=== PATIENT | female | born 1975 | race Caucasian/White ===

== ENCOUNTER 2016-04-18 19:22 | Emergency (ER) | payer BC ==
[~2016-04-18] VITALS: Ht 175.3 cm; Wt 92.8 kg
[~2016-04-18 19:22] MED LIST: PRENTAB26 PO; SYN100 PO
[2016-04-18 19:25] VITALS: TEMP 38; Ht 175.3 cm; Wt 92.8 kg
[2016-04-18] MEDS ORDERED: ONDANSETRON INJ 2 MG/ML 2 ML VIAL IV STA (19:39)
[2016-04-18] MEDS ORDERED: ACETAMINOPHEN 325 MG TAB PO STA (19:39)
[2016-04-18] MEDS ORDERED: SODIUM CHLORIDE 0.9% 1000ML 2,000 ML IV STA (19:39)
[2016-04-18] MEDS ORDERED: LEVO100T PO (20:06)
[2016-04-18] MEDS ORDERED: BCPILLS PO (20:06)
[2016-04-18 20:10] LABS: BASO % 0.1 %; BASO ABS # 0.01 K/uL (0-0.2); COMPLETE YES; EOS % 0.1 %; HEMATOCRIT 40.1 % (37-47); IG% 0.2 %; LYMPH % 9.9 %; LYMPH ABS # 1.36 K/uL (1.2-3.4); MEAN CELL VOLUME 86.8 fL (80-100); MEAN CORPUSCULAR HEMOGLOBIN 30.5 pg (25-34); MEAN CORPUSCULAR HGB CONC 35.2 g/dl (32-36); MEAN PLATELET VOLUME 9.3 fL (7.4-10.4); MONO % 6.8 %; NEUT % 82.9 %; PLATELET COUNT 250 K/uL (130-400); RED BLOOD COUNT 4.62 M/uL (4.2-5.4)
[2016-04-18 20:30] LABS: BUN/CREATININE RATIO 10.1 (10-20); CALCIUM 8.6 mg/dl (8.5-10.1); CREATININE 0.87 mg/dl (0.60-1.20); POTASSIUM 3.7 mmol/L (3.5-5.1)
--- NOTE | 2016-04-18 20:41 | DIAGNOSTIC IMAGING REPORT ---
CHEST 2 VIEWS ROUTINE CLINICAL HISTORY: Cough. Congestion. COMPARISON STUDY: No previous studies for comparison. FINDINGS: Lung volumes are normal. No pneumothorax or pleural effusion is present. Lungs are clear. Cardiac size is normal. Mediastinal contours are normal. There is no evidence of pulmonary edema. IMPRESSION: No acute cardiopulmonary findings. Electronically signed by: Evin Andrade M.D. 04/18/2016 8:39 PM Dictated Date/Time: 04/18/2016 8:38 PM
[2016-04-18 21:48] VITALS: BP 101/53; PULSE 87; O2SAT 95
--- NOTE | 2016-04-19 00:53 | EMERGENCY ROOM VISIT NOTE ---
History Report prepared by Jd: Kathy Sofia Under the Supervision of: Ruchi SabillonO. First contact with patient: 19:28 Chief Complaint: FLU LIKE SX Stated Complaint: INFLUENZA History of Present Illness The patient is a 40 year old female who presents to the Emergency Room with complaints of worsening flu-like symptoms with onset being Sunday.The patient states that she started to feel sick one day ago. She has had a fever, aches, and feels generally weak. The patient notes that she has had vertigo following taking the Tamiflu and abdominal pain which she gets following getting sick every time.. The patient notes that the abdominal pain is right sided and started one day ago. She has a cough, runny nose, sore throat. She denies vomiting, diarrhea, chest pain, shortness of breath, neck pain, urinary symptoms , chance of , changes in vision, any particular weakness in arms or legs. The patient states that she took Motrin 3.5 hours ago. Source of History: patient Onset: 1 day ago Position: other (global) Symptom Intensity: 10 Quality: other (flu like symptoms) Timing: worsening Associated Symptoms: + abdominal pain, + cough, + fevers, + weakness, No SOB , No chest pain, No diarrhea, No urinary symptoms, No vomiting Note: The patient is a 40 year old female who presents to the Emergency Room with complaints of worsening flu-like symptoms with onset The patient states that she started to feel sick one day ago. She has aches, and feels generally weak. The patient notes that she has had vertigo, runny nose , sore throat. She denies neck pain, changes in vision, any particular weakness in arms or legs. Review of Systems See HPI for pertinent positives & negatives. A total of 10 systems reviewed and were otherwise negative. Past Medical & Surgical Medical Problems: (1) Hypothyroid Surgical Problems: (1) S/P cholecystectomy (2) S/P tonsillectomy Family History Diabetes mellitus FH: gallbladder disease Social History Smoking Status: Never Smoker Housing Status: lives with family Occupation Status: employed Current/Historical Medications Scheduled Control Pills ( Control Pills), 1 TAB PO QPM Levothyroxine Sodium (Synthroid), 100 MCG PO QAM Allergies Coded Allergies: No Known Allergies (Verified , ., 04/18/16) Physical Exam Vital Signs Date Time Temp Pulse Resp B/P Pulse Ox O2 Delivery O2 Flow Rate FiO2 04/18/16 21:48 87 16 101/53 95 Room Air 04/18/16 20:39 87 16 110/61 96 Room Air 04/18/16 19:25 38.0 106 20 154/80 97 Room Air Physical Exam GENERAL: Sitting up in bed, disheveled, in no acute distress, nontoxic, dry nonproductive cough EYE EXAM: normal conjunctiva, PERRL and EOM's intact OROPHARYNX: no exudate, no erythema, lips, buccal mucosa, and tongue normal and mucous membranes are dry EARS: NECK: supple, no nuchal rigidity, no adenopathy, non-tender LUNGS: Clear to auscultation. Normal chest wall mechanics HEART: no murmurs, S1 normal and S2 normal ABDOMEN: abdomen soft, non-tender, normo-active bowel sounds, no masses, no rebound or guarding. BACK: Back is symmetrical on inspection and there is no deformity, no midline tenderness, no CVA tenderness. SKIN: no rashes and no bruising UPPER EXTREMITIES: upper extremities are grossly normal. LOWER EXTREMITIES: No pitting edema. Calves are equal bilaterally. NEURO EXAM: Normal sensorium, cranial nerves II-XII intact, normal speech, no weakness of arms, no weakness of legs. No drift. Finger to nose intact.Sensation intact. Medical Decision & Procedures ER Provider Diagnostic Interpretation: Xray results per the radiologist and my interpretation. CHEST 2 VIEWS ROUTINE CLINICAL HISTORY: Cough. Congestion. COMPARISON STUDY: No previous studies for comparison. FINDINGS: Lung volumes are normal. No pneumothorax or pleural effusion is present. Lungs are clear. Cardiac size is normal. Mediastinal contours are normal. There is no evidence of pulmonary edema. IMPRESSION: No acute cardiopulmonary findings. Electronically signed by: Evin Andrade M.D. 04/18/2016 8:39 PM Dictated Date/Time: 04/18/2016 8:38 PM Laboratory Results 04/18/16 19:55 Red Blood Count 4.62, Mean Corpuscular Volume 86.8, Mean Corpuscular Hemoglobin 30.5, Mean Corpuscular Hemoglobin Concent 35.2, Mean Platelet Volume 9.3, Neutrophils (%) (Auto) 82.9, Lymphocytes (%) (Auto) 9.9, Monocytes (%) (Auto) 6.8, Eosinophils (%) (Auto) 0.1, Basophils (%) (Auto) 0.1, Neutrophils # (Auto) 11.36, Lymphocytes # (Auto) 1.36, Monocytes # (Auto) 0.93, Eosinophils # (Auto) 0.01, Basophils # (Auto) 0.01 04/18/16 19:55 Test 04/18/16 19:33 04/18/16 19:55 Influenza Type A Antigen Neg for Influ A (NEG) Influenza Type B Antigen Neg for Influ B (NEG) White Blood Count 13.70 K/uL (4.8-10.8) Red Blood Count 4.62 M/uL (4.2-5.4) Hemoglobin 14.1 g/dL (12.0-16.0) Hematocrit 40.1 % (37-47) Mean Corpuscular Volume 86.8 fL (80-100) Mean Corpuscular Hemoglobin 30.5 pg (25-34) Mean Corpuscular Hemoglobin Concent 35.2 g/dl (32-36) Platelet Count 250 K/uL (130-400) Mean Platelet Volume 9.3 fL (7.4-10.4) Neutrophils (%) (Auto) 82.9 % Lymphocytes (%) (Auto) 9.9 % Monocytes (%) (Auto) 6.8 % Eosinophils (%) (Auto) 0.1 % Basophils (%) (Auto) 0.1 % Neutrophils # (Auto) 11.36 K/uL (1.4-6.5) Lymphocytes # (Auto) 1.36 K/uL (1.2-3.4) Monocytes # (Auto) 0.93 K/uL (0.11-0.59) Eosinophils # (Auto) 0.01 K/uL (0-0.5) Basophils # (Auto) 0.01 K/uL (0-0.2) RDW Standard Deviation 41.7 fL (36.4-46.3) RDW Coefficient of Variation 13.1 % (11.5-14.5) Immature Granulocyte % (Auto) 0.2 % Immature Granulocyte # (Auto) 0.03 K/uL (0.00-0.02) Anion Gap 12.0 mmol/L (3-11) Est Creatinine Clear Calc Drug Dose 105.3 ml/min Estimated GFR () 97.3 Estimated GFR (Non- 83.9 BUN/Creatinine Ratio 10.1 (10-20) Calcium Level 8.6 mg/dl (8.5-10.1) Total Bilirubin 0.3 mg/dl (0.2-1) Direct Bilirubin 0.1 mg/dl (0-0.2) Aspartate Amino Transf (AST/SGOT) 23 U/L (15-37) Alanine Aminotransferase (ALT/SGPT) 51 U/L (12-78) Alkaline Phosphatase 70 U/L (45-117) Total Protein 8.1 gm/dl (6.4-8.2) Albumin 3.7 gm/dl (3.4-5.0) Lipase 99 U/L (73-393) Laboratory results per my review. Medications Administered Medications (Trade) Dose Ordered Sig/[place] Route Start Time Stop Time Status Last Admin Dose Admin Sodium Chloride (Nss 1000ml) 2,000 ml @ 999 mls/hr Q2H1M STAT IV 04/18/16 19:39 04/18/16 21:39 DC 04/18/16 19:56 999 MLS/HR Acetaminophen (Tylenol Tab) 650 mg NOW STAT PO 04/18/16 19:39 04/18/16 19:44 DC 04/18/16 19:56 650 MG Ondansetron HCl (Zofran Inj) 4 mg NOW STAT IV 04/18/16 19:39 04/18/16 19:44 DC 04/18/16 19:56 4 MG ED Course ED COURSE: Vital signs were reviewed and showed that the patient is febrile and tachycardic. The patients medical record was reviewed The above diagnostic studies were performed and reviewed. ED treatments and interventions as stated above. 1930: The patient was evaluated in room C10. A complete history and physical examination was performed. 1938: Zofran 4 mg IV, Tylenol Tab 50 mg PO, Sodium Chloride 2000 ml @ 999 mls/ hr IV 0: Upon reevaluation, the patient is doing well. I discussed my findings with the patient and she understands and agrees with the treatment plan. Based on the patients age, coexisting illnesses, exam and lab findings the decision to treat as an outpatient was made. The patient remained stable while under my care. The patient appeared well at the time of discharge. Medical Decision The patient is a 40 year old female who presents to the ED with complaints of flu like symptoms. Differential diagnosis: Etiologies such as viral syndrome, otitis, pharyngitis, pneumonia, influenza, meningitis, urinary tract infection, sepsis, bacteremia, as well as others were entertained. Patient is a 40-year-old female who presents the ER for cough, runny nose, sore throat, chills and diffuse weakness. 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 Following taking Tamiflu she did become dizzy. She's not been eating and drinking. Patient also has mild lower abdominal discomfort which she notes she always gets when she gets sick. Her abdominal exam was unremarkable. No signs peritonitis. Chest x-ray shows no focal infiltrate. Vitals show that she was febrile and tachycardic. She was given Tylenol. Influenza A and B was negative. Labs show a mild leukocytosis of 13,000 but CBC was otherwise unremarkable along with BMP, LFTs, bilirubin and lipase. UA was not obtained. She declined serum . Upon reevaluation on 2 L normal saline and Zofran she felt significantly better. She declined any imaging of her abdomen as she notes this always occurs which gets sick. 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 She is completely neurologically intact. There is no signs of stroke. Patient was updated at bedside and discharged. Discussed with Pt concerning signs and symptoms to watch out for. Pt was instructed to follow up with their PCP and discussed with the patient their option to return to the ED at anytime for persistent or worsening symptoms. The appropriate anticipatory guidance and out-patient management, including indications for return to the emergency department, were explained at length to the patient and understood. Impression Primary Impression: Viral URI Additional Impression: Upper respiratory infection Scribe Attestation The scribe's documentation has been prepared under my direction and personally reviewed by me in its entirety. I confirm that the note above accurately reflects all work, treatment, procedures, and medical decision making performed by me. Departure Information Dispostion Home / Self-Care Referrals Sriram Yuan M.D. (PCP) Forms HOME CARE DOCUMENTATION FORM, IMPORTANT VISIT INFORMATION Patient Instructions A Signature Page, ED URI Viral, My [facility] Additional Instructions Please follow up with your primary care doctor with in the next 24 hours. Any worsening of your symptoms, please return to the ED immediately. This includes passing out, persistent fevers greater than 100.4, unable to eat or drink, severe neck stiffness, confusion, or any other concerning signs or symptoms from your standpoint. Please take Motrin Tylenol as needed for fevers. Problem Qualifiers Additional Impression: Upper respiratory infection URI type: unspecified viral URI Qualified Codes: J06.9 - Acute upper respiratory infection, unspecified; B97.89 - Other viral agents as the cause of diseases classified elsewhere
== END 2016-04-18 22:16 | disposition home or self-care (01) ==
LOC: C.EDB 19:23 → C.EDC 22:16
DX: J06.9 Acute upper respiratory infection, unspecified (principal); E03.9 Hypothyroidism, unspecified; Z90.49 Acquired absence of other specified parts of digestive tract; Z98.890 Other specified postprocedural states; Z79.899 Other long term (current) drug therapy; Z83.3 Family history of diabetes mellitus; Z83.79 Family history of other diseases of the digestive system

== ENCOUNTER → 2017-01-12 | Outpatient (CLI) | payer BC ==
[~2017-01-12] MED LIST changes: +BCPILLS PO; +LEVO100T PO; -PRENTAB26 PO; -SYN100 PO
--- NOTE | 2017-01-12 15:48 | MAMMOGRAPHY REPORT ---
BILATERAL DIGITAL SCREENING MAMMOGRAM TOMOSYNTHESIS WITH CAD: 01/12/2017 CLINICAL HISTORY: Routine screening. Patient has no complaints. TECHNIQUE: Breast tomosynthesis in addition to standard 2D mammography was performed. Current study was also evaluated with a Computer Aided Detection (CAD) system. COMPARISON: Comparison is made to exams dated: 11/17/2015 mammogram and 11/17/2015 ultrasound - [facility]. BREAST COMPOSITION: There are scattered areas of fibroglandular density in both breasts. FINDINGS: No suspicious masses, calcifications, or areas of architectural distortion are noted in ei ther breast. There has been no significant interval change compared to prior exams. IMPRESSION: ACR BI-RADS CATEGORY 1: NEGATIVE There is no mammographic evidence of malignancy. A 1 year screening mammogram is recommended. The pa tient will receive written notification of the results. Approximately 10% of breast cancers are not detected with mammography. A negative mammographic report should not delay biopsy if a clinically suggestive mass is present. Charla Bo M.D. ah/:01/12/2017 12:35:54 Supervisor Data Processing: Sosa HERNANDEZR, M, [facility] letter sent: Normal 1/2 BI-RADS Code: ACR BI-RADS Category 1: Negative
== END | disposition home or self-care (01) ==
LOC: C.MAMM 11:03
PROVIDERS: ATTEND Family Medicine
DX: Z12.31 Encounter for screening mammogram for malignant neoplasm of breast (principal)